=== PATIENT | female | born 1995 | race Caucasian/White ===

== ENCOUNTER 2017-09-16 17:52 | Emergency (ER) | payer SELFPAY ==
--- NOTE | 2017-09-16 18:25 | EDPHY ---
H & P Stated Complaint: Had blood in vomit today;ETOH last pm ("not a lot"),lots of stress w/school Time Seen by Provider: 09/16/17 18:25 - Personal History LMP (Females 10-55): Now Current Tetanus Diphtheria and Acellular Pertussis (TDAP): Yes Constitutional: Initial Vital Signs Temperature (C) 37.1 C 09/16/17 17:53 Heart Rate 104 H 09/16/17 17:53 Respiratory Rate 16 09/16/17 17:53 Blood Pressure 130/88 H 09/16/17 17:53 O2 Sat (%) 96 09/16/17 17:53 O2 Delivery Mode Room Air Allergies/Adverse Reactions: No Known Allergies Allergy (Unverified 09/16/17 17:56) Home Medications: Medication Instructions Recorded NK [No Known Home Meds] 09/16/17 Medical Decision Making ED Course/Re-evaluation: CHIEF COMPLAINT: Vomiting blood HISTORY OF PRESENT ILLNESS: This patient is a healthy 22 y/o female complaining of vomiting blood. Today, she was feeling very stressed about midterms and family issues, and vomited from being extremely anxious. Her emesis consisted of bile and bright red blood. She estimates about one cup of aliza blood. Later, she was on her way to the student clinic and vomited again, about one cup of bright blood and bile. She endorses a stomach ache for the past several days, but had not vomited before today's episodes of hematemesis. No fever, diarrhea, urinary complaints. No unusual foods or abdominal trauma. REVIEW OF SYSTEMS: A 10 point review of systems was performed and is negative with the exception of the elements mentioned in the history of present illness. PHYSICAL EXAM: HR, BP, O2 Sat, RR. Temp noted General Appearance: Alert, well hydrated, appropriate, and non-toxic appearing. Head: Atraumatic without scalp tenderness or obvious injury Eyes: Pupils equal, round, reactive to light and accommodation, EOMI, no trauma , no injection. Ears: Clear bilaterally, no perforation, normal landmarks Nose: Atraumatic, no rhinorrhea, clear. Throat: There is no erythema or exudates, no lesions, normal tonsils, mucus membranes moist. Neck: Supple, 2+ carotid upstroke, nontender, no lymphadenopathy. Respiratory: No retractions, no distress, no wheezes, and no accessory muscle use. Lungs are clear to auscultation bilaterally. Cardiovascular: Regular rate and rhythm, no murmurs, rubs, or gallops. Bilateral carotid, radial, dorsalis pedis, and posterior tibial pulses intact. Good capillary refill all extremities. Gastrointestinal: Abdomen is soft, nontender, non-distended, no masses, no rebound, no guarding, no peritoneal signs. Musculoskeletal: Normal active ROM of all extremities, atraumatic. Neurological: Alert, appropriate, and interactive. The patient has normal DTRs and non-focal cranial nerves, motor, sensory, and cerebellar exam. Skin: No rashes, good turgor, no nodules on palpation. Past medical history: Denies. Past surgical history: Noncontributory Family history: Noncontributory. Social history: [employer] student. . Originally from [place] DIFFERENTIAL DIAGNOSIS: The differential diagnosis for the patient's upper GI bleeding included but was not limited to ulcer disease, gastritis, Janet-Diaz tear, and esophageal varices. MEDICAL DECISION [id number] y/o presents following two episodes of hematemesis. She vomited about 2 cups of aliza red blood tonight. Abdomen is nontender on exam. Plan for labs including CBC, chemistries, liver, lipase, coag, BHCG. Plan to administer IVF, 80mg IV Protonix, 4mg IV Zofran. Laboratory studies unremarkable. Plan to admit for observation and GI consult with scope. 20:[address] Danielson, hospitalist. He accepts admission for gastroenteritis vs gastric ulcer. 20:[address] Cervantes, associate professor of archaeology. He will consult tomorrow. - Data Points Laboratory Results: Laboratory Results 09/16/17 18:42 09/16/17 18:42 09/16/17 09/16/17 09/16/17 18:42 18:42 18:42 WBC RBC Hgb Hct MCV MCH MCHC RDW Plt Count MPV Neut % (Auto) Lymph % (Auto) Mellette % (Auto) Eos % (Auto) Baso % (Auto) Nucleat RBC Rel Count Absolute Neuts (auto) Absolute Lymphs (auto) Absolute Monos (auto) Absolute Eos (auto) Absolute Basos (auto) Absolute Nucleated RBC Immature Gran % Immature Gran # PT 13.1 SEC SEC (12.0-15.0) INR 0.97 (0.83-1.16) APTT 28.6 SEC SEC (23.0-38.0) Sodium 143 mEq/L mEq/L (135-145) Potassium 3.9 mEq/L mEq/L (3.5-5.2) Chloride 105 mEq/L mEq/L (97-110) Carbon Dioxide 23 mEq/l mEq/l (22-31) Anion Gap 15 mEq/L mEq/L (8-16) BUN 13 mg/dL mg/dL (7-23) Creatinine 0.8 mg/dL mg/dL (0.6-1.0) Estimated GFR > 60 Glucose 85 mg/dL mg/dL (70-100) Calcium 9.5 mg/dL mg/dL (8.5-10.4) Total Bilirubin 0.6 mg/dL mg/dL (0.1-1.4) Conjugated Bilirubin 0.4 mg/dL mg/dL (0.0-0.5) Unconjugated Bilirubin 0.2 mg/dL mg/dL (0.0-1.1) AST 25 IU/L IU/L (14-46) ALT 34 IU/L IU/L (9-52) Alkaline Phosphatase 73 IU/L IU/L (38-126) Total Protein 7.5 g/dL g/dL (6.3-8.2) Albumin 4.4 g/dL g/dL (3.5-5.0) Lipase 75 IU/L IU/L (23-300) Beta HCG, Qual NEGATIVE 09/16/17 18:42 WBC 7.02 10^3/uL 10^3/uL (3.80-9.50) RBC 4.85 10^6/uL 10^6/uL (4.18-5.33) Hgb 14.7 g/dL g/dL (12.6-16.3) Hct 42.9 % % (38.0-47.0) MCV 88.5 fL fL (81.5-99.8) MCH 30.3 pg pg (27.9-34.1) MCHC 34.3 g/dL g/dL (32.4-36.7) RDW 12.1 % % (11.5-15.2) Plt Count 293 10^3/uL 10^3/uL (150-400) MPV 9.6 fL fL (8.7-11.7) Neut % (Auto) 74.4 % H % (39.3-74.2) Lymph % (Auto) 20.7 % % (15.0-45.0) Mellette % (Auto) 4.4 % L % (4.5-13.0) Eos % (Auto) 0.3 % L % (0.6-7.6) Baso % (Auto) 0.1 % L % (0.3-1.7) Nucleat RBC Rel Count 0.0 % % (0.0-0.2) Absolute Neuts (auto) 5.22 10^3/uL 10^3/uL (1.70-6.50) Absolute Lymphs (auto) 1.45 10^3/uL 10^3/uL (1.00-3.00) Absolute Monos (auto) 0.31 10^3/uL 10^3/uL (0.30-0.80) Absolute Eos (auto) 0.02 10^3/uL L 10^3/uL (0.03-0.40) Absolute Basos (auto) 0.01 10^3/uL L 10^3/uL (0.02-0.10) Absolute Nucleated RBC 0.00 10^3/uL 10^3/uL (0-0.01) Immature Gran % 0.1 % % (0.0-1.1) Immature Gran # 0.01 10^3/uL 10^3/uL (0.00-0.10) PT INR APTT Sodium Potassium Chloride Carbon Dioxide Anion Gap BUN Creatinine Estimated GFR Glucose Calcium Total Bilirubin Conjugated Bilirubin Unconjugated Bilirubin AST ALT Alkaline Phosphatase Total Protein Albumin Lipase Beta HCG, Qual Medications Given: Discontinued Medications Sodium Chloride (Ns) 1,000 mls @ 0 mls/hr IV EDNOW ONE; Wide Open PRN Reason: Protocol Stop: 09/16/17 19:10 Last Admin: 09/16/17 19:22 Dose: 1,000 mls Ondansetron HCl (Zofran) 4 mg IVP EDNOW ONE Stop: 09/16/17 19:10 Last Admin: 09/16/17 19:22 Dose: 4 mg Pantoprazole Sodium (Protonix) 80 mg IVP EDNOW ONE Stop: 09/16/17 19:10 Last Admin: 09/16/17 19:36 Dose: 80 mg Departure - Departure Disposition: [facility] Inpatient Acute Clinical Impression: Hematemesis with nausea Condition: Fair Referrals: NONE *PRIMARY CARE P,. [Primary Care Provider] - As per Instructions Report Scribed for: Sushil Marx Report Scribed by: Tami Cervantes Date of Report: 09/16/17 Time of Report: 19:05
[2017-09-16] MEDS ORDERED: ONDANSETRON 4 MG/2 ML VIAL IVP ONE (19:09)
[2017-09-16] MEDS ORDERED: PANTOPRAZOLE SODIUM 40 MG VIAL IVP ONE (19:09)
[2017-09-16] MEDS ORDERED: NS 1,000 ML IV ONE (19:09)
[2017-09-16 19:17] LABS: PLATELET COUNT 293 10^3/uL (150-400)
[2017-09-16 19:25] LABS: INR 0.97 (0.83-1.16); PROTIME(PATIENT) 13.1 SEC (12.0-15.0)
[2017-09-16] MEDS ORDERED: ACETAMINOPHEN 325 MG TAB PO PRN (20:45)
[2017-09-16] MEDS ORDERED: ONDANSETRON DISINTEGRATING 4 MG TAB PO PRN (20:45)
[2017-09-16] MEDS ORDERED: ONDANSETRON 4 MG/2 ML VIAL IVP PRN (20:45)
[2017-09-16] MEDS ORDERED: LORazepam 2 MG/ML INJ IVP PRN (20:45)
[2017-09-16] MEDS ORDERED: NS 1,000 ML IV SCH (20:45)
--- NOTE | 2017-09-16 21:07 | GHP ---
[f rep st] HISTORY AND PHYSICAL DATE OF ADMISSION: 09/16/2017 CHIEF COMPLAINT: Hematemesis. HISTORY OF PRESENT ILLNESS: 22-year-old female, who has had significant anxiety over the past few days. This relates to her moving, helping her parents with their company, being in school. This has led to significant stomach upset. Today she threw up twice, both times were about a cup of blood. She had never thrown up blood before. She is not taking any blood thinners and said she rarely drinks alcohol. She has been told that she has GI intolerances before, she vomits typically every few months. This is better when she is following a strict diet. PAST MEDICAL/SURGICAL HISTORY: Anxiety. MEDICATIONS: Please see medication reconciliation. ALLERGIES: No known drug allergies. FAMILY HISTORY: Father has anxiety. SOCIAL HISTORY: She is going to school. She does not drink very often. REVIEW OF SYSTEMS: A 10-point review of systems is conducted and is negative except per HPI. PHYSICAL EXAMINATION: VITAL SIGNS: Blood pressure 130/88, heart rate 104, respiration rate 16, saturating at 96% on room air. Temperature is 37.1. GENERAL: The patient is an anxious, tearful female who is resting in bed. HEENT: Shows her to be normocephalic, atraumatic. CARDIOVASCULAR: Regular rate and rhythm. No murmurs, rubs, or gallops. PULMONARY: Lungs clear to auscultation bilaterally. ABDOMEN: Soft, nontender, nondistended. SKIN: Shows no rash. : Exam shows no Hernández. NEUROLOGIC: Shows her to be alert and oriented x3. She is moving all extremities. PSYCHIATRIC: Exam shows normal mood and affect. LABORATORY DATA: Notable for a hemoglobin of 14. INR 0.97. Basic metabolic panel is normal. LFTs are normal. DATA: I discussed this with Dr. Marx. IMPRESSION AND PLAN: 22-year-old female with upper gastrointestinal bleed, concerning for gastritis or gastric ulcer. I will check her for H pylori. Dr. Cervantes with GI has been consulted, plans EGD tomorrow morning. We will trend her hemoglobins. Place her on IV Protonix b.i.d. This is a high risk diagnosis. She is quite anxious, was asking to leave AMA. I strongly advised her against this and told her that this could be a life-threatening condition. /[id number]/MODL MTDD
[2017-09-16 21:21] VITALS: PULSE 85; RESP 20
[2017-09-16 22:17] VITALS: BP 111/75; TEMP 98.1; O2SAT 96
--- NOTE | 2017-09-16 22:27 | GDS ---
[f rep st] DISCHARGE SUMMARY DISPOSITION: AMA departure 09/16/2017. ALL DIAGNOSES: 1. Upper gastrointestinal bleed. 2. Anxiety. HOSPITAL COURSE: 22-year-old female admitted with an upper GI bleed. She was stabilized appropriate ly in the emergency department. She was written for Protonix. GI was consulted, planned an upper en doscopy the following morning. Given her anxiety, she refused to stay. I offered to call her in a p rescription for Protonix, though she said that she was going to follow up with another doctor tomorro w, and she refused this. I told her the risks of leaving which include bleeding and potentially deat h. The benefits of staying would be monitoring and diagnosis. She understood this, had capacity, bu t still decided to leave [place]. /[id number]/MODL
[2017-09-17] MEDS ORDERED: PANTOPRAZOLE SODIUM 40 MG VIAL IVP SCH (09:00)
== END 2017-09-16 21:50 | disposition left against medical advice (07) ==
LOC: UNDOADMOB 20:17
DX: K92.0 Hematemesis (principal); E86.9 Volume depletion, unspecified
CPT/HCPCS: 96374; J2405